=== PATIENT | male | born 1990 | race Caucasian/White ===

== ENCOUNTER 2018-06-16 06:01 | Emergency (ER) | payer OTHER ==
[~2018-06-16] VITALS: Ht 182.9 cm; Wt 86.2 kg
[~2018-06-16 06:01] MED LIST: IBUPROFEN 600600 M1 PO; NORCO 5-325 TA1 EACH PO
[2018-06-16] MEDS ORDERED: FLEXERIL PO (06:25)
[2018-06-16] MEDS ORDERED: TAMIFLU45 MG PO (06:30)
[2018-06-16 06:45] VITALS: BP 130/73
== END 2018-06-16 07:31 | disposition home or self-care (01) ==
LOC: ER 06:01
DX: M62.830 Muscle spasm of back (principal)